=== PATIENT | male | born 1955 | race African-American/Black ===

== ENCOUNTER 2018-09-27 19:15 | Emergency (ER) | payer OTHER, SELFPAY ==
[2018-09-27 20:13] LABS: #Basophils 0.1 thou/uL (0.0-0.2); #Eosinphils 0.3 thou/uL (0.0-0.7); #Lymphocytes 2.1 thou/uL (1.20-3.40); #Monocytes 0.6 thou/uL (0.11-0.59); #Neutrophils 4.4 thou/uL (1.40-6.50); %Basophils 1.5 % (0.0-1.0); %Eosinophils 3.9 % (0.0-10.0); %Lymphocytes 28.4 % (21.0-51.0); %Neutrophils 58.3 % (42.0-75.0); Hemoglobin 11.3 g/dL (14.0-18.0); Mean Corpuscular HGB CONC 31.2 g/dL (32.0-36.0); Mean Corpuscular Hemoglobin 23.9 pg (27.0-31.0); Mean Corpuscular Volume 76.7 fL (78.0-98.0); Mean Platelet Volume 7.1 fL (7.4-10.4); Platelet Count 232 thou/uL (130-400); RBC Distribution Width 12.7 % (11.5-14.5); Red Blood Cell (RBC) Count 4.71 mill/uL (4.70-6.10); White Blood Cell (WBC) Count 7.5 thou/uL (4.8-10.8)
[2018-09-27] MEDS ORDERED: Acetaminophen 500 MG TAB ONE (20:25)
== END 2018-09-27 20:41 | disposition short-term general hospital (02) ==
LOC: NAV ERS 19:15
DX: I80.9 Phlebitis and thrombophlebitis of unspecified site (principal); I25.10 Atherosclerotic heart disease of native coronary artery without angina pectoris; I10 Essential (primary) hypertension; J45.909 Unspecified asthma, uncomplicated; Z87.891 Personal history of nicotine dependence; Z79.51 Long term (current) use of inhaled steroids; Z79.82 Long term (current) use of aspirin
CPT/HCPCS: 85025; 85379; 99284

== ENCOUNTER 2019-10-01 16:47 | Emergency (ER) | payer SELFPAY | END 2019-10-01 17:05 | disposition home or self-care (01) | LOC: NAV ERS 16:47 | DX: I10 Essential (primary) hypertension (principal); F41.9 Anxiety disorder, unspecified; I25.10 Atherosclerotic heart disease of native coronary artery without angina pectoris; J45.909 Unspecified asthma, uncomplicated; Z79.82 Long term (current) use of aspirin; Z79.899 Other long term (current) drug therapy; Z87.891 Personal history of nicotine dependence | CPT/HCPCS: 99283 ==

== ENCOUNTER 2020-05-07 14:31 | Emergency (ER) | payer SELFPAY ==
[2020-05-07] MEDS ORDERED: Cyclobenzaprine 10 MG TAB ONE (14:47)
[2020-05-07] MEDS ORDERED: Ketorolac Tromethamine 60 MG/2 ML VIAL ONE (14:48)
== END 2020-05-07 15:11 | disposition home or self-care (01) ==
LOC: NAV ERS 14:31
DX: S39.012A Strain of muscle, fascia and tendon of lower back, initial encounter (principal); I10 Essential (primary) hypertension; J45.909 Unspecified asthma, uncomplicated; Z87.891 Personal history of nicotine dependence; Z79.899 Other long term (current) drug therapy; Z79.82 Long term (current) use of aspirin; V89.2XXA Person injured in unspecified motor-vehicle accident, traffic, initial encounter
CPT/HCPCS: 96372; 99284; J1885

== ENCOUNTER 2020-05-07 17:49 | Emergency (ER) | payer SELFPAY ==
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
== END 2020-05-07 19:25 | disposition home or self-care (01) ==
LOC: NAV ERS 17:49
DX: S22.32XA Fracture of one rib, left side, initial encounter for closed fracture (principal); I10 Essential (primary) hypertension; J45.909 Unspecified asthma, uncomplicated; Z87.891 Personal history of nicotine dependence; Z79.899 Other long term (current) drug therapy; Z79.82 Long term (current) use of aspirin; V89.2XXA Person injured in unspecified motor-vehicle accident, traffic, initial encounter

== ENCOUNTER 2021-08-12 10:28 | Outpatient (CLI) | payer OTHER | END 2021-08-12 10:29 | disposition home or self-care (01) | LOC: NAV RAD 10:28 | PROVIDERS: ATTEND Nurse Practitioner Family | DX: R07.9 Chest pain, unspecified (principal) | CPT/HCPCS: 71046 ==

== ENCOUNTER 2021-11-24 08:04 | Emergency (ER) | payer OTHER | END 2021-11-24 08:35 | disposition home or self-care (01) | LOC: NAV ERS 08:04 | DX: J01.00 Acute maxillary sinusitis, unspecified (principal); I10 Essential (primary) hypertension; I25.10 Atherosclerotic heart disease of native coronary artery without angina pectoris; J45.909 Unspecified asthma, uncomplicated; Z95.5 Presence of coronary angioplasty implant and graft; Z87.891 Personal history of nicotine dependence; Z79.82 Long term (current) use of aspirin; Z79.899 Other long term (current) drug therapy | CPT/HCPCS: 99283 ==

== ENCOUNTER 2022-06-27 09:58 | Emergency (ER) | payer OTHER ==
[2022-06-27] MEDS ORDERED: Ketorolac Tromethamine 60 MG/2 ML VIAL ONE (11:11)
[2022-06-27] MEDS ORDERED: Dexamethasone 20 MG/5 ML VIAL ONE (11:13)
== END 2022-06-27 11:27 | disposition home or self-care (01) ==
LOC: NAV ERS 09:58
DX: M54.9 Dorsalgia, unspecified (principal); G89.29 Other chronic pain; F17.210 Nicotine dependence, cigarettes, uncomplicated; Z79.82 Long term (current) use of aspirin; Z79.899 Other long term (current) drug therapy
CPT/HCPCS: 96372; 99283; J1100; J1885

== ENCOUNTER 2022-07-20 09:13 | Outpatient (CLI) | payer OTHER | END 2022-07-20 09:14 | disposition home or self-care (01) | LOC: NAV RAD 09:13 | PROVIDERS: ATTEND Nurse Practitioner Family | DX: M54.40 Lumbago with sciatica, unspecified side (principal); M47.816 Spondylosis without myelopathy or radiculopathy, lumbar region | CPT/HCPCS: 72100 ==

== ENCOUNTER 2022-10-08 14:32 | Emergency (ER) | payer OTHER ==
[2022-10-08 15:24] LABS: #Basophils 0.1 thou/uL (0.0-0.2); #Eosinphils 0.1 thou/uL (0.0-0.7); #Lymphocytes 2.6 thou/uL (1.20-3.40); #Monocytes 0.5 thou/uL (0.11-0.59); #Neutrophils 2.7 thou/uL (1.40-6.50); %Basophils 1.3 % (0.0-1.0); %Lymphocytes 42.7 % (21.0-51.0); %Monocytes 8.8 % (0.0-10.0); %Neutrophils 45.2 % (42.0-75.0); Hemoglobin 11.4 g/dL (14.0-18.0); Mean Corpuscular HGB CONC 30.5 g/dL (32.0-36.0); Mean Corpuscular Hemoglobin 23.8 pg (27.0-31.0); Mean Corpuscular Volume 77.9 fl (78.0-98.0); Mean Platelet Volume 6.4 fL (7.4-10.4); Platelet Count 237 10x3/uL (130-400); RBC Distribution Width 12.5 % (11.5-14.5); Red Blood Cell (RBC) Count 4.81 mill/uL (4.70-6.10)
[2022-10-08 15:27] LABS: PTT 28.5 sec (22.9-36.1)
[2022-10-08 15:55] LABS: ALT (SGPT) 15 U/L (8-55); AST (SGOT) 23 U/L (5-34); Albumin 4.3 g/dL (3.4-4.8); Alkaline Phosphatase 66 U/L (40-110); Anion Gap 17 mmol/L (10-20); BUN (Urea Nitrogen) 16 mg/dL (8.4-25.7); Bilirubin, Total 0.6 mg/dL (0.2-1.2); Calc. Creatinine Clearance 0 mL/min (70-130); Calcium 9.4 mg/dL (7.8-10.44); Carbon Dioxide 23 mmol/L (23-31); Chloride 104 mmol/L (98-107); Estimated GFR 69; Globulin 2.9 g/dL (2.4-3.5); Glucose 122 mg/dL (80-115); Potassium 3.7 mmol/L (3.5-5.1); Protein, Total 7.2 g/dL (5.8-8.1); Sodium 140 mmol/L (136-145)
== END 2022-10-08 16:21 | disposition home or self-care (01) ==
LOC: NAV ERS 14:32
DX: K29.00 Acute gastritis without bleeding (principal); I25.10 Atherosclerotic heart disease of native coronary artery without angina pectoris; I10 Essential (primary) hypertension; Z79.82 Long term (current) use of aspirin; Z79.899 Other long term (current) drug therapy
CPT/HCPCS: 36415; 71045; 80053; 82274; 84484; 85025; 85610; 85730; 93005

== ENCOUNTER 2023-06-16 08:21 | Emergency (ER) | payer OTHER, MEDICAID ==
[2023-06-16] MEDS ORDERED: methylPREDNISolone Acetate 40 mg/ml Vial ONE (08:49)
[2023-06-16] MEDS ORDERED: Naproxen 500 MG TAB ONE (08:49)
== END 2023-06-16 09:28 | disposition home or self-care (01) ==
LOC: NAV ERS 08:21
DX: M54.41 Lumbago with sciatica, right side (principal); G89.29 Other chronic pain; I10 Essential (primary) hypertension; I25.10 Atherosclerotic heart disease of native coronary artery without angina pectoris; J45.909 Unspecified asthma, uncomplicated; Z79.899 Other long term (current) drug therapy; Z79.82 Long term (current) use of aspirin; Z87.891 Personal history of nicotine dependence
CPT/HCPCS: 96372; 99283; J1030

== ENCOUNTER 2024-01-24 15:26 | Outpatient (CLI) | payer OTHER | END 2024-01-24 15:27 | disposition home or self-care (01) | LOC: NAV RAD 15:26 | PROVIDERS: ATTEND Nurse Practitioner Family | DX: L03.032 Cellulitis of left toe (principal) ==

== ENCOUNTER 2025-02-24 20:03 | Emergency (ER) | payer OTHER ==
[~2025-02-24 20:03] MED LIST: Iopamidol 370 76% 100 ML VIAL ONE
[2025-02-24] MEDS ORDERED: Fleet Saline Enema 133 ML BOT ONE (21:03)
[2025-02-24] MEDS ORDERED: Ketorolac Tromethamine 30 MG (1 mL) VIAL ONE (21:58)
[2025-02-24 22:14] LABS: #Basophils 0.1 thou/uL (0.0-0.2); #Eosinophils 0.1 thou/uL (0.0-0.7); #Lymphocytes 1.8 thou/uL (1.20-3.40); #Monocytes 0.7 thou/uL (0.11-0.59); #Neutrophils 4.7 thou/uL (1.40-6.50); %Basophils 0.8 % (0.0-1.0); %Eosinophils 1.9 % (0.0-10.0); %Lymphocytes 24.2 % (21.0-51.0); %Monocytes 9.0 % (0.0-10.0); %Neutrophils 64.2 % (42.0-75.0); Hematocrit 34.6 % (42.0-52.0); Hemoglobin 10.9 g/dL (14.0-18.0); Mean Corpuscular Hemoglobin 23.2 pg (27.0-31.0); Mean Corpuscular Volume 73.4 fl (78.0-98.0); Platelet Count 260 10x3/uL (130-400); Red Blood Cell (RBC) Count 4.71 mill/uL (4.70-6.10); White Blood Cell (WBC) Count 7.4 10x3/uL (4.8-10.8)
[2025-02-24 22:27] LABS: ALT (SGPT) 10 U/L (Less than 45); AST (SGOT) 30 U/L (11-34); Albumin 4.1 g/dL (3.1-4.5); Alkaline Phosphatase 64 U/L (40-110); Anion Gap 17 mmol/L (10-20); BUN (Urea Nitrogen) 9 mg/dL (8.4-25.7); Bilirubin, Total 0.9 mg/dL (0.3-1.2); Calc. Creatinine Clearance 0 mL/min (70-130); Calcium 9.3 mg/dL (7.8-10.44); Carbon Dioxide 23 mmol/L (23-31); Chloride 103 mmol/L (98-107); Globulin 3.5 g/dL (2.4-3.5); Glucose 86 mg/dL (80-115); Potassium 3.5 mmol/L (3.5-5.1); Sodium 139 mmol/L (136-145)
[2025-02-24 22:29] LABS: Target Cells MODERATE= 6-15 cells (100X) (0-1/hpf)
[2025-02-24 22:30] LABS: Anisocytosis SLIGHT = 6-15 cells (100X) (0-5/hpf); Microcytosis SLIGHT = 6-15 cells (100X) (0-5/hpf)
[2025-02-24 22:31] LABS: Poikilocytosis SLIGHT = 6-15 cells (100X) (0-5/hpf)
== END 2025-02-25 02:01 | disposition home or self-care (01) ==
LOC: NAV ERS 20:03
DX: R10.13 Epigastric pain (principal); K59.00 Constipation, unspecified; I10 Essential (primary) hypertension; Z87.891 Personal history of nicotine dependence; Z79.899 Other long term (current) drug therapy
CPT/HCPCS: 80053; 85025; J1885; J7030; 74177; 96374

== ENCOUNTER 2025-06-08 10:44 | Emergency (ER) | payer OTHER ==
[2025-06-08] MEDS ORDERED: Bacitracin 1 PK ONE (11:18)
== END 2025-06-08 11:33 | disposition home or self-care (01) ==
LOC: NAV ERS 10:44
DX: T23.202A Burn of second degree of left hand, unspecified site, initial encounter (principal); T22.242A Burn of second degree of left axilla, initial encounter; T55.0X1A Toxic effect of soaps, accidental (unintentional), initial encounter; I10 Essential (primary) hypertension; F17.210 Nicotine dependence, cigarettes, uncomplicated; Y92.89 Other specified places as the place of occurrence of the external cause; Z95.5 Presence of coronary angioplasty implant and graft
CPT/HCPCS: 99283

== ENCOUNTER 2025-06-25 08:15 | Emergency (ER) | payer OTHER | END 2025-06-25 08:47 | disposition home or self-care (01) | LOC: NAV ERS 08:15 | DX: R21 Rash and other nonspecific skin eruption (principal); I25.10 Atherosclerotic heart disease of native coronary artery without angina pectoris; I10 Essential (primary) hypertension; F17.210 Nicotine dependence, cigarettes, uncomplicated | CPT/HCPCS: 99282 ==